=== PATIENT | female | born 1995 | race Caucasian/White ===

== ENCOUNTER 2022-03-04 23:35 | Emergency (ER) | payer MEDICAID ==
[~2022-03-04] VITALS: Ht 149.9 cm; Wt 77.1 kg
[2022-03-04 23:44] VITALS: BP_SYST 120
[2022-03-05] MEDS ORDERED: ONDANSETRON HCL 4 MG/2 ML VIAL IVP ONE
[2022-03-05] MEDS ORDERED: ACETAMINOPHEN 500 MG TABLET PO ONE
[2022-03-05] MEDS ORDERED: NACL 0.9% 1,000 ML IV ONE
[2022-03-05 00:14] LABS: BILIRUBIN,URINE NEGATIVE (NEGATIVE); BLOOD, URINE 1+ (NEGATIVE); CLARITY/URINE CLEAR (CLEAR); COLOR,URINE YELLOW (YELLOW); GLUCOSE,URINE NEGATIVE (NEGATIVE); KETONES,URINE NEGATIVE (NEGATIVE); LEUKOCYTE ESTERASE ,URINE NEGATIVE (NEGATIVE); NITRITE, URINE NEGATIVE (NEGATIVE); PROTEIN URINE NEGATIVE (NEGATIVE); UROBILINOGEN,URINE 0.2 (0.2-1.0)
[2022-03-05 00:34] LABS: BACTERIA,URINE None Seen /HPF (None Seen); RBC,URINE 0-3 /HPF (0-3); WBC,URINE NONE SEEN /HPF (0-3)
[2022-03-05 00:35] LABS: MUCUS,URINE None Seen /LPF (None Seen)
[2022-03-05 01:25] LABS: BARBITURATE, URINE NEGATIVE (NEG <=200); BENZODIAZEPINE, URINE NEGATIVE (NEG <=150); CANNABINOID, URINE NEGATIVE (NEG <=50); COCAINE, URINE NEGATIVE (NEG <=150); METHAMPHETAMINES SCREEN,URINE NEGATIVE (NEG <=500); OPIATE, URINE NEGATIVE (NEG <=100); PHENCYCLIDINE SCREEN,URINE NEGATIVE (NEG <=25); UR TRICYCLIC ANTIDEPRESSANTS NEGATIVE (NEG <=300); URINE AMPHETAMINE NEGATIVE (NEG <=500); URINE METHADONE NEGATIVE (NEG <=200); URINE OXYCODONE SCREEN NEGATIVE (NEG <=100); URINE PROPOXYPHENE SCREEN NEGATIVE (NEG <=300)
[2022-03-05 01:35] LABS: ANION GAP 5 (5-15); CALCIUM 8.9 mg/dL (8.4-11.0); CHLORIDE 102 mmol/L (98-107); CREATININE 0.69 mg/dL (0.55-1.30); GLUCOSE 76 mg/dL (70-99); POTASSIUM 3.4 mmol/L (3.5-5.1); UREA NITROGEN, BLOOD 6 mg/dL (8-21)
[2022-03-05 01:36] LABS: GFR AFRICAN AMERICAN 134 mL/min (>90)
[2022-03-05 02:12] LABS: ALANINE AMINOTRANSFERASE 23 U/L (12-78); ALBUMIN 3.4 g/dL (3.4-4.8); ASPARTATE AMINOTRANSFERASE 16 U/L (10-37); TOTAL BILIRUBIN 0.3 mg/dL (0.0-1.0)
[2022-03-05 02:15] LABS: ALCOHOL, BLOOD < 3 mg/dL (<10); HCG,QUANTITATIVE 39328 mIU/ML (0-6)
[2022-03-05 02:33] LABS: HEMATOCRIT 39.1 % (36-48); RED BLOOD CELL COUNT(AUTO) 4.15 MIL/uL (4.2-6.2); WHITE BLOOD COUNT (AUTO) 11.4 K/uL (4.8-10.8)
[2022-03-05 02:34] LABS: BASOPHILS % (AUTO) 0.7 % (0.0-2.0); EOSINOPHILS % (AUTO) 0.8 % (0.0-4.0); LYMPHOCYTES % (AUTO) 26.5 % (20.5-51.5); MEAN CORPUSCULAR VOLUME 94 fL (79.0-98.0); MONOCYTES # (AUTO) 0.8 K/uL (0.0-1.0); NEUTROPHILS # (AUTO) 7.4 K/uL (1.8-7.7); PLATELET COUNT (AUTO) 282 K/uL (130-430); RED CELL DISTRIBUTION WIDTH 14.1 % (9.0-15.0)
[2022-03-05 02:35] LABS: BASOPHILS # (AUTO) 0.1 K/uL (0.0-0.2); EOSINOPHILS # (AUTO) 0.1 K/uL (0.0-0.4)
[2022-03-05 02:50] VITALS: BP_SYST 124
== END 2022-03-05 02:50 | disposition home or self-care (01) ==
LOC: SED 23:35
DX: O20.0 Threatened abortion (principal); Z79.899 Other long term (current) drug therapy; Z3A.11 11 weeks gestation of pregnancy
CPT/HCPCS: 99284; 80307; 80053; 84702; 85025; 86900; 86901; 36415; 81000; 96374; 76801; 96361; 76817; G0482; J2405; J7030

== ENCOUNTER 2022-03-06 12:36 | Emergency (ER) | payer MEDICAID ==
[~2022-03-06] VITALS: Ht 149.9 cm; Wt 74.8 kg
[2022-03-06 12:52] VITALS: BP_SYST 109
--- NOTE | 2022-03-06 14:20 | NUR ---
ER DR. DAUGHERTY EXAMINING PT IN TRIAGE
--- NOTE | 2022-03-06 15:34 | NUR ---
Patient to ER CHAIR 1 to gown for evaluation. Side rails up.
--- NOTE | 2022-03-06 17:46 | NUR ---
Megan barksdale in [facility] - 03/06/22 at 1803 by [email or web address] PT ELOPED FROM ER
--- NOTE | 2022-03-06 18:33 | NUR ---
Patient given written and verbal discharge instructions and verbalizes understanding. ER MD discussed with patient the results and treatment provided. Patient in stable condition. ID arm band removed. INFORMED TO F/U WITH OB-TEST DEPARTMENT HELPER. . Patient educated on pain management and to follow up with PMD. Pain Scale . Opportunity for questions provided and answered. Medication side effect fact sheet provided.
[2022-03-06 18:34] VITALS: BP_SYST 109
== END 2022-03-06 18:34 | disposition home or self-care (01) ==
LOC: SED 12:36
DX: O03.4 Incomplete spontaneous abortion without complication (principal); O26.851 Spotting complicating pregnancy, first trimester; Z3A.01 Less than 8 weeks gestation of pregnancy
CPT/HCPCS: 36415; 76801; 76817; 84702; 99284